=== PATIENT | male | born 1985 | race Caucasian/White ===

== ENCOUNTER 2021-09-20 17:44 | Emergency (ER) | payer OTHER, SELFPAY ==
[2021-09-20 17:49] VITALS: BP 150/100; PULSE 115; O2SAT 90
[2021-09-20 17:51] VITALS: BP 132/72; PULSE 89; RESP 19; TEMP 37.7; O2SAT 92; BMI 27.3
--- NOTE | 2021-09-20 18:01 | ED_ITS ---
HPI - Chest Pain General Chief Complaint: General Medical Stated Complaint: cp Time Seen by Provider: 09/20/21 17:53 Source: patient Mode of arrival: EMS Limitations: no limitations History of Present Illness HPI narrative: Patient with history of substance abuse IVDA heroin cocaine with history of anxiety disorder being very anxious lately today was having chest pain sharp off and on for last few hours with cold sweats call the EMS denies any shortness of breath no radiation of pain patient has similar pain in the past without any significant workup last cocaine use was 2 days ago and last heroin use was yesterday. No cough no fever no chills Related Data Allergies Allergy/AdvReac Type Severity Reaction Status Date / Time SHELLFISH Allergy Unknown RASH Uncoded 08/12/20 18:16 Review of Systems Review of Systems: Yes all other systems are reviewed and are negative [facility] Past Medical History Medical History Anxiety Bipolar 1 disorder Social History Social History Advance Directives: No Advance Directives Information Provided: No Physical Exam Vital Signs: Vital Signs: Last Vital Signs Temp 99.9 F 09/20/21 17:51 Pulse 89 09/20/21 17:51 Resp 19 09/20/21 17:51 BP 132/72 09/20/21 17:51 Pulse Ox 92 09/20/21 17:51 Body Mass Index 27.3 Appearance: Alert. Oriented X3. No acute distress. Eyes: No pallor or icterus ENT: Pharynx normal. Oral Mucosa moist Neck: Normal inspection. Neck supple. CVS: Normal heart rate and rhythm. Pulses normal. Respiratory: No respiratory distress. Equal air entry bilateral, no wheezing/rales/rhonchi Abdomen: Soft and nontender. Bowel sounds are present, no mass palpable, no CVA tenderness Skin: Skin warm and dry. Normal skin color. Normal skin turgor. Extremities: No lower extremity edema. No calf tenderness IV DA track brooks Neuro: Oriented X 3. MDM - Chest Pain MDM Narrative Medical decision making narrative: Patient has atypical chest pain refused to stay in the ER for any workup signed against medical advise and left the ER EKG taken by EMS without any ST elevation Discharge Plan Discharge Clinical Impression: Anxiety Chest pain Qualifiers: Chest pain type: precordial pain Qualified Code(s): R07.2 - Precordial pain Patient Disposition: Left Against Medical Advice Instructions: Chest Pain (ED), Generalized Anxiety Disorder (ED) Stand Alone Forms: Against Medical Advice Interventions: ED Discharge Assessment Last Done: 09/20/21 18:10 Discharge Date/Time: 09/20/21 18:51
== END 2021-09-20 18:51 | disposition left against medical advice (07) ==
LOC: HO.ED 18:36
PROVIDERS: Emergency Provider Internal Medicine
DX: F41.9 Anxiety disorder, unspecified (principal); R07.2 Precordial pain; F14.10 Cocaine abuse, uncomplicated
CPT/HCPCS: 99283